=== PATIENT | female | born 1975 | race Caucasian/White ===

== ENCOUNTER 2018-06-21 08:40 | Inpatient (IN) | payer OTHER ==
[~2018-06-21] VITALS: Ht 157.5 cm; Wt 100.5 kg
[2018-06-21 08:49] VITALS: Ht 157.5 cm; Wt 100.5 kg
[2018-06-21 11:57] LABS: BASOPHIL % 0.3 % (0-2); PLATELET COUNT 256 x10^3mcL (130-400); RED CELL DISTRIBUTION WIDTH 14.1 % (11.5-14.5)
[2018-06-21 12:00] LABS: CALCIUM 8.5 mg/dL (8.5-10.1); CHLORIDE SERUM 101 mmol/L (98-107); CREATININE SERUM 0.8 mg/dL (0.6-1.0); GFR1 > 60 mL/min; GLUCOSE SERUM 114 mg/dL (74-106); POTASSIUM SERUM 3.9 mmol/L (3.5-5.1); SODIUM SERUM 136 mmol/L (136-145)
[2018-06-21 12:04] LABS: ALBUMIN 3.6 g/dL (3.4-5.0); ALKALINE PHOSPHATASE 39 U/L (46-116); ALT/SGPT 28 U/L (14-59); AST/SGOT 19 U/L (15-37); BILIRUBIN TOTAL 0.52 mg/dL (0.20-1.00); TOTAL PROTEIN, SERUM 7.8 g/dL (6.4-8.2)
[2018-06-21 12:41] LABS: ERYTHROCYTE SED RATE 51 mm/hr (0-20)
[2018-06-21 17:31] LABS: CHOLESTEROL/HDL RATIO 4.4; MAGNESIUM 2.1 mg/dL (1.8-2.4); PHOSPHOROUS 3.5 mg/dL (2.5-4.9)
[2018-06-21 17:41] LABS: T3 TOTAL 1.01 ng/mL
[2018-06-21 17:53] LABS: FREE T4 0.74 ng/dL (0.76-1.46); FREE THYROXINE INDEX 2.5 ug/dL (1.4-4.5); T4(THYROXINE) 8.4 ug/dL (4.7-13.3)
[2018-06-21 19:04] VITALS: BP 153/103
[2018-06-21 19:17] VITALS: BP 153/103
[2018-06-21 19:42] VITALS: BP 151/93
[2018-06-22 05:14] VITALS: BP 125/97
[2018-06-22 06:39] LABS: CALCIUM 8.1 mg/dL (8.5-10.1); CARBON DIOXIDE 28.5 mmol/L (21-32); CHLORIDE SERUM 102 mmol/L (98-107); CREATININE SERUM 0.8 mg/dL (0.6-1.0); GFR1 > 60 mL/min; GLUCOSE SERUM 95 mg/dL (74-106); SODIUM SERUM 138 mmol/L (136-145)
[2018-06-22 06:55] LABS: BASOPHIL % 0.5 % (0-2); PLATELET COUNT 238 x10^3mcL (130-400); RED CELL DISTRIBUTION WIDTH 14.1 % (11.5-14.5)
[2018-06-22 08:17] VITALS: BP 120/70
[2018-06-22 08:42] LABS: UA SPECIFIC GRAVITY <=1.005 (1.005-1.035); microscopic required? YES; urine erythrocyte TRACE (NEGATIVE)
[2018-06-22 08:59] LABS: AMPHETAMINE QUAL UR NONE DETECTED (See below)
[2018-06-22 16:48] VITALS: BP 183/97
[2018-06-22 17:01] VITALS: BP 176/94
[2018-06-22 21:09] VITALS: BP 142/81
[2018-06-23 06:18] VITALS: BP 146/79
[2018-06-23 07:22] LABS: BASOPHIL % 0.4 % (0-2); PLATELET COUNT 269 x10^3mcL (130-400); RED CELL DISTRIBUTION WIDTH 14.3 % (11.5-14.5)
[2018-06-23 07:32] LABS: CALCIUM 8.4 mg/dL (8.5-10.1); CARBON DIOXIDE 27.9 mmol/L (21-32); CHLORIDE SERUM 102 mmol/L (98-107); CREATININE SERUM 0.8 mg/dL (0.6-1.0); GFR1 > 60 mL/min; GLUCOSE SERUM 164 mg/dL (74-106); POTASSIUM SERUM 3.7 mmol/L (3.5-5.1); SODIUM SERUM 138 mmol/L (136-145)
[2018-06-23 07:45] VITALS: BP 142/88
[2018-06-23] MEDS ORDERED: IBUPROFEN IB100 MG PO (10:33)
[2018-06-23] MEDS ORDERED: IMITREX50 MG PO (10:33)
[2018-06-23] MEDS ORDERED: NORCO1 TA2 PO (10:33)
[2018-06-23] MEDS ORDERED: AMBIEN5 MG PO (10:34)
[2018-06-23 11:31] VITALS: BP 142/88
== END 2018-06-23 14:56 | disposition home or self-care (01) | DRG 54 ==
LOC: ED 08:40 → MU 15:55
PROVIDERS: Emergency Medicine; Specialist; ADMIT Internal Medicine
PROC: 009U3ZX Drainage of Spinal Canal, Percutaneous Approach, Diagnostic (ICD-10-PCS; principal; 2018-06-21)
PROC: B01B1ZZ Fluoroscopy of Spinal Cord using Low Osmolar Contrast (ICD-10-PCS; 2018-06-21)
DX: G43.919 Migraine, unspecified, intractable, without status migrainosus (principal); E66.01 Morbid (severe) obesity due to excess calories; Z68.41 Body mass index [BMI] 40.0-44.9, adult; Z83.6 Family history of other diseases of the respiratory system; Z82.49 Family history of ischemic heart disease and other diseases of the circulatory system; Z82.3 Family history of stroke; Z80.9 Family history of malignant neoplasm, unspecified
CPT/HCPCS: 62272; 83880; 84439; J1885; J2001; J2060; J2270; J2405; J2930; J3010; J3490; J7030; Q0162